=== PATIENT | female | born 2005 | race Caucasian/White ===

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

== ENCOUNTER 2023-08-25 11:41 | Emergency (ER) | payer OTHER, SELFPAY ==
[2023-08-25 11:46] VITALS: BP 110/60; PULSE 61; RESP 16; TEMP 36.7; O2SAT 98
--- NOTE | 2023-08-25 11:58 | ED.URI ---
HPI - URI/Sore Throat General Chief Complaint: Upper Respiratory Infection Stated Complaint: covid test Time Seen by Provider: 08/25/23 11:58 Source: patient, RN notes reviewed and old records reviewed Mode of arrival: ambulatory Limitations: no limitations History of Present Illness HPI Narrative: 18 year old female who presents to [facility] care with complaints of roommate testing positive for COVID yesterday afternoon and she has had had a cough and headache since last evening. Patient reports that she has had COVID 3 times previously and feels like she has in the past when she has COVID.Patient reates her headache as 5/10 and has not taken any OTC medications for her symptoms. MD elicited complaint: cough and other (headache) Onset (ago): day(s) (last night) Pain scale (0-10): 5 Able to tolerate fluids by mouth: Yes Treatments prior to arrival: none Related Data Home Medications Medication Instructions Recorded Confirmed etonogestrel 68 mg subdermal 1 implant subdermal ONCE 08/25/23 08/25/23 implant (Nexplanon) Allergies Allergy/AdvReac Type Severity Reaction Status Date / Time No Known Allergies Allergy Verified 08/25/23 11:59 Review of Systems Review of Systems: CONSTITUTIONAL: Denies malaise, chills, sweats, or fever.states fatigue EYES: Denies visual changes, redness, or discharge. ENT: Reports no rhinorrhea, congestion, sinus pain, otalgia or sore throat. CARDIOVASCULAR: Denies chest pain, palpitations, or edema. RESPIRATORY: Reports cough.? Denies dyspnea. GASTROINTESTINAL: Denies abdominal pain, nausea, vomiting, diarrhea SKIN: Denies rash or itching. MUSCULOSKELETAL: Denies myalgia. NEUROLOGIC: Reports headache. All systems reviewed & are unremarkable except as noted in HPI and below PMFSH Past Medical History Medical History (Updated 08/27/23 @ 08:59 by Krista Ramos NP) Strabismus RT eye Surgical History Surgical History (Updated 10/03/19 @ 10:22 by EDISON Duran) History of eye surgery RT for Strabismus Family History Family History (Updated 10/03/19 @ 10:25 by EDISON Duran) Grandparent Depression Malignant neoplasm of prostate Grandparent Heart disease Hypertension Cerebrovascular accident Social History Social History (Updated 08/27/23 @ 08:50 by Krista Ramos NP) Smoking status: Former smoker Tobacco type: e-cigarettes/vaping Alcohol intake: unknown Substance use: never Living arrangements: with family Occupation/Education: student Gender identity (if verbalized by the patient): Female Comments At time of signature, agree with nursing past medical, surgical, social and family history. There is no relevant family history pertinent to the presenting complaint Exam Narrative: GENERAL: Well-appearing, well-nourished, and in no acute distress. HEAD: Normocephalic EYES: PERRLA, conjunctivae clear ENT: Nares clear, turbinates edematous and erythematous, clear discharge. Mucous membranes moist. TM pearly abad with dull light reflex bilaterally; no tragal tenderness. Oropharynx erythematous without lesions. Tonsils not enlarged and without exudate, no drooling, no hoarseness, no trismus, uvula midline. NECK: Supple. No lymphadenopathy CHEST: Clear to auscultation, breath sounds equal. No wheezing, rhonchi, rales, or stridor. No respiratory distress, speaks in full sentences.SAO2 98% on room air HEART: Regular rate and rhythm. No murmur heard. SKIN: Warm, dry, no rash. NEURO: Alert and oriented x3. PSYCH: Normal mood and affect Course Course Emergency Course: Patient is aware of diagnosis, understands and agrees to treatment plan.? Anticipatory guidance given.? Patient agrees to follow-up as directed and is aware of reasons to seek care at the emergency department. Portions of this record may have been created with voice recognition software Level of Care: [facility] Care Visit Vi
== END 2023-08-25 12:20 | disposition home or self-care (01) ==
PROVIDERS: Emergency Provider Registered Nurse; PCP Pediatrics
DX: J06.9 Acute upper respiratory infection, unspecified (principal); Z20.822 Contact with and (suspected) exposure to COVID-19; F17.290 Nicotine dependence, other tobacco product, uncomplicated
CPT/HCPCS: 87426; 99213; C9803; G0463

== ENCOUNTER 2023-09-18 19:32 | Emergency (ER) | payer OTHER, SELFPAY ==
[2023-09-18 19:46] VITALS: BP 105/64; PULSE 86; RESP 16; TEMP 36.9; O2SAT 100
--- NOTE | 2023-09-18 19:49 | ED.GENADULT ---
HPI - General Adult General Chief complaint: Abdominal Pain Stated complaint: Stomach/Chest Pain Time Seen by Provider: 09/18/23 19:49 Source: patient, RN notes reviewed and old records reviewed Mode of arrival: ambulatory Limitations: no limitations History of Present Illness HPI narrative: 18-year-old female presents to the [facility] with complaints of abdominal pain, epigastric. 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 States that she laid on the floor for approximately 30 minutes. Was able to get up in eat some food which made her feel little bit better. Went to work and started having some epigastric, chest pain without shortness of breath. No radiation of pain. Denies any nausea or vomiting states that it feels like a very sharp pain in the mid to upper abdomen from periumbilical to epigastric. Denies any urinary symptoms Patient denies any medical or surgical history No treatment prior to arrival Onset (ago): hour(s) Related Data Home Medications Medication Instructions Recorded Confirmed etonogestrel 68 mg subdermal 1 implant subdermal ONCE 08/25/23 09/18/23 implant (Nexplanon) Allergies Allergy/AdvReac Type Severity Reaction Status Date / Time No Known Allergies Allergy Verified 09/18/23 20:02 Review of Systems Review of Systems: All systems reviewed & are unremarkable except as noted in HPI and below Constitutional: Constitutional: Reports no additional constitutional complaints Eyes: Eyes: Reports no additional eye complaints ENT: Reports system reviewed and no additional complaints, except as documented Cardiovascular: Cardiovascular: Reports no additional cardiovascular complaints, Denies chest pain and Denies dyspnea Respiratory: Respiratory: Reports no additional respiratory complaints, Denies chest congestion, Denies cough and Denies dyspnea Gastrointestinal: Gastrointestinal: Reports as per HPI, Reports abdominal pain, Denies nausea and Denies vomiting Musculoskeletal: Musculoskeletal: Reports no additional musculoskeletal complaints Integumentary/Breasts: Skin/Breast: Reports system reviewed and no additional complaints, except as docu Neurologic: Reports system reviewed and no additional complaints, except as documented Psychiatric: Psychiatric: Reports no additional psychiatric complaints Allergic/Immunologic: Allergic/Immunologic: Reports no additional allergic/immunologic complaints PMFSH Past Medical History Medical History Strabismus RT eye Surgical History Surgical History History of eye surgery RT for Strabismus Family History Family History Grandparent Depression Malignant neoplasm of prostate Grandparent Heart disease Hypertension Cerebrovascular accident Social History Social History Smoking status: Former smoker Tobacco type: e-cigarettes/vaping Alcohol intake: unknown Substance use: never Living arrangements: with family Occupation/Education: student Gender identity (if verbalized by the patient): Female Comments At the time of my signature, I reviewed and agree with the nursing past medical, surgical, social, and family history. There is no relevant family history pertinent to the patient complaint. Exam Const: General: cooperative, healthy appearing, comfortable, no acute distress, well developed, alert and well nourished Nutritional Appearance: well nourished Orientation/consciousness: patient oriented x3 Limitations: no limitations HENMT: Head: normal to inspection Ears: hearing grossly normal bilaterally and external ears normal Face/Nose/Sinus: Angelita
== END 2023-09-18 19:59 | disposition left against medical advice (07) ==
LOC: EXPGOSH 19:36
PROVIDERS: Emergency Provider Nurse Practitioner
DX: R10.13 Epigastric pain (principal); Z87.891 Personal history of nicotine dependence
CPT/HCPCS: 99211; G0463